=== PATIENT | female | born 1975 | race Caucasian/White ===

== ENCOUNTER 2017-12-12 09:03 | Outpatient (CLI) | payer OTHER ==
--- NOTE | 2017-12-12 18:50 | Diagnostic Imaging Report ---
DARSHAN POWERS [facility] [address] [id number] Report Submission Date: Dec 12, 2017 9:37:57 AM CDT Patient Study Name: BESSIE CABRERA Date: Dec 12, 2017 9:15:12 AM CDT Modality Type: DX Gender: F Description: LOWER EXTREMITY : 77 Institution: [facility] Physician: DARSHAN POWERS Examination: Plain film left foot History: LEFT FOOT, PAIN IN LEFT FOOT SINCE STEPPING OUT OF TRUCK YESTERDAY. MOST PAIN IN DORSAL 2-4 METATARSALS (Hx) Findings: 3 views of the left foot demonstrates normal cortical margins. No fracture or dislocation. Small calcaneal spur. No soft tissue swelling. No joint effusion. Impression: No acute osseous process. Electronically signed on Dec 12, 2017 9:37:57 AM CDT by: Gunner MURRAY
== END 2017-12-12 09:05 ==
LOC: RAD 09:03
PROVIDERS: ATTEND Family Medicine
DX: M79.672 Pain in left foot (principal)
CPT/HCPCS: 73630